=== PATIENT | male | born 1950 | race Two or more races ===

== ENCOUNTER → 2020-08-08 08:00 | Outpatient (CLI) | payer OTHER | END | disposition home or self-care (01) | LOC: LAB 08:00 → ADM 13:45 → AMB-ENDOS 08-15 13:45 → EDSTATUS 08-15 13:45 | PROVIDERS: ATTEND Colon & Rectal Surgery | DX: U07.1 COVID-19 (principal); Z01.812 Encounter for preprocedural laboratory examination ==

== ENCOUNTER 2021-05-15 08:43 | Day surgery (SDC) | payer OTHER | END 2021-05-15 13:00 | disposition home or self-care (01) | LOC: CIR.AMB 08:43 | PROVIDERS: ATTEND Colon & Rectal Surgery | DX: D12.2 Benign neoplasm of ascending colon (principal); K62.1 Rectal polyp; Z12.11 Encounter for screening for malignant neoplasm of colon ==

== ENCOUNTER 2022-06-25 06:55 | Day surgery (SDC) | payer OTHER | END 2022-06-25 11:40 | disposition home or self-care (01) | LOC: AMB-ENDOS 06:55 | PROVIDERS: ATTEND Colon & Rectal Surgery | DX: K63.5 Polyp of colon (principal); K62.7 Radiation proctitis; K64.4 Residual hemorrhoidal skin tags; Z85.3 Personal history of malignant neoplasm of breast ==

== ENCOUNTER 2024-11-16 09:23 | Day surgery (SDC) | payer OTHER ==
[2024-11-16] MEDS ORDERED: MIDAZOLAM HCL 2 MG/2 ML VIAL IV ONE (14:15)
[2024-11-16] MEDS ORDERED: DIPHENHYDRAMINE HCL 50 MG/ML VIAL 1ML IV ONE (14:15)
[2024-11-16] MEDS ORDERED: ONDANSETRON HCL 2 MG/ML VIAL IV ONE (14:15)
[2024-11-16] MEDS ORDERED: fentaNYL CITRATE 50 MCG/ML AMPUL IV PUSH ONE (14:15)
== END 2024-11-16 16:00 | disposition home or self-care (01) ==
LOC: AMB-ENDOS 09:23
PROVIDERS: ATTEND Colon & Rectal Surgery
DX: D12.5 Benign neoplasm of sigmoid colon (principal); D12.8 Benign neoplasm of rectum; Z12.11 Encounter for screening for malignant neoplasm of colon; K62.5 Hemorrhage of anus and rectum; K63.5 Polyp of colon; R19.4 Change in bowel habit